=== PATIENT | female | born 1980 | race Caucasian/White ===

== ENCOUNTER → 2018-08-11 | Outpatient (CLI) | payer BC, OTHER | LOC: COL.RAD 11:06 | DX: N13.2 Hydronephrosis with renal and ureteral calculous obstruction (principal) ==

== ENCOUNTER 2018-09-10 11:25 | Inpatient (IN) | payer BC, OTHER ==
[~2018-09-10] VITALS: Ht 167.6 cm; Wt 106.0 kg
[2018-09-10] VITALS (579 sets, daily range): BP systolic 101–121; BP diastolic 58–71; PULSE 103–113; TEMP 101.5–103.1; O2SAT 92–100
[~2018-09-10 11:25] MED LIST: NORCO 325 MG-51 TAB PO; PYRIDIUM 100MG100 MG PO; SENOKOT8.6 MG PO
[2018-09-10] MEDS ORDERED: SENNA-LAX8.6 MG PO (11:44)
[2018-09-10 12:16] LABS: BASO % 0.2 % (0.0-2.0); GRAN # 9.5 (1.4-6.5); GRAN % 85.8 % (42.2-75.2); LYMPH # 0.6 (1.2-3.4); LYMPH % 4.9 % (20.0-51.0); MEAN CELL VOLUME 80 fl (80.0-100.0); MEAN CORPUSCULAR HEMOGLOBIN 26 pg (27.0-31.0); MEAN CORPUSCULAR HGB CONC 32 g/dl (33.0-37.0); MEAN PLATELET VOLUME 12.4 fl (7.4-10.4); MONO # 0.9 (0.1-0.6); MONO % 8.4 % (1.7-9.3); PLATELET COUNT 125 K/mm3 (130-400); RED BLOOD COUNT 4.62 M/mm3 (4.10-5.30); REDCELL DISTRIBUTION WIDTH-CV 13.5 % (11.5-14.5)
[2018-09-10 12:29] LABS: ALBUMIN 3.9 gm/dL (3.5-5.0); BILIRUBIN,TOTAL 1.7 mg/dL (0.0-1.0); CALCIUM 8.7 mg/dL (8.4-10.2); CREATININE, serum 0.84 mg/dL (0.52-1.25); POTASSIUM 3.7 mmol/L (3.4-5.0); TOTAL PROTEIN 6.8 gm/dL (6.4-8.2)
[2018-09-10 12:47] LABS: COLLECTION METHOD CLEAN CATCH
[2018-09-10 13:01] LABS: MUCOUS Present /lpf; PH 5 (5-8); URINE APPEARANCE Hazy; URINE BACTERIA Rare /hpf; URINE BILIRUBIN Negative (NEGATIVE); URINE BLOOD 3+ (NEGATIVE); URINE COLOR Amber; URINE GLUCOSE Negative (NEGATIVE); URINE KETONE Negative (NEGATIVE); URINE LEUKOCYTE ESTERASE 2+ (NEGATIVE); URINE NITRATE Positive (NEGATIVE); URINE PROTEIN(semi-quant) 2+ (NEGATIVE); URINE RBC >50 /hpf; URINE UROBILINOGEN >=4.0 mg/dL (NEGATIVE)
[2018-09-10] MEDS ORDERED: FLOMAX 0.40.4 MG/CAP PO (14:03)
[2018-09-11] VITALS (581 sets, daily range): BP systolic 94–122; BP diastolic 45–80; PULSE 96–124; TEMP 98.4–102.8; O2SAT 89–100
[2018-09-11 11:02] LABS: MEAN CELL VOLUME 81 fl (80.0-100.0); MEAN CORPUSCULAR HGB CONC 33 g/dl (33.0-37.0); MEAN PLATELET VOLUME 12.2 fl (7.4-10.4); PLATELET COUNT 104 K/mm3 (130-400); RED BLOOD COUNT 3.78 M/mm3 (4.10-5.30); REDCELL DISTRIBUTION WIDTH-CV 13.8 % (11.5-14.5)
[2018-09-11 11:05] LABS: HEMATOCRIT 30.5 % (37.0-47.0); HEMOGLOBIN 9.9 g/dl (12.5-16.0); MEAN CORPUSCULAR HEMOGLOBIN 26 pg (27.0-31.0)
[2018-09-11 11:12] LABS: CREATININE, serum 0.93 mg/dL (0.52-1.25); POTASSIUM 3.4 mmol/L (3.4-5.0)
[2018-09-11 11:14] LABS: BAND 18 % (0-10); LYMPHOCYTE 11 % (20.0-51.0); NEUTROPHILS 67 % (42.0-75.2); PLATELET ESTIMATE DECREASED (NORMAL)
[2018-09-11 11:15] LABS: HYPOCHROMIA 1+
[2018-09-11 11:17] LABS: MICROCYTOSIS 1+
[2018-09-12] VITALS (406 sets, daily range): BP systolic 108–128; BP diastolic 56–96; PULSE 77–99; TEMP 98–100.2; O2SAT 95–100
[2018-09-13 04:57] VITALS: BP 119/72; PULSE 86; TEMP 99.2
[2018-09-13 06:20] LABS: BASO % 0.3 % (0.0-2.0); EOS % 0.6 % (0-4.0); GRAN # 5.5 (1.4-6.5); GRAN % 80.4 % (42.2-75.2); LYMPH # 0.7 (1.2-3.4); LYMPH % 10.4 % (20.0-51.0); MEAN CELL VOLUME 79 fl (80.0-100.0); MEAN CORPUSCULAR HGB CONC 33 g/dl (33.0-37.0); MEAN PLATELET VOLUME 12.2 fl (7.4-10.4); MONO # 0.5 (0.1-0.6); MONO % 7.9 % (1.7-9.3); PLATELET COUNT 107 K/mm3 (130-400); RED BLOOD COUNT 3.61 M/mm3 (4.10-5.30); REDCELL DISTRIBUTION WIDTH-CV 13.9 % (11.5-14.5)
[2018-09-13 06:22] LABS: HEMATOCRIT 28.5 % (37.0-47.0); HEMOGLOBIN 9.3 g/dl (12.5-16.0); MEAN CORPUSCULAR HEMOGLOBIN 26 pg (27.0-31.0)
[2018-09-13 06:29] LABS: ALBUMIN 2.8 gm/dL (3.5-5.0); CALCIUM 7.9 mg/dL (8.4-10.2); CREATININE, serum 0.79 mg/dL (0.52-1.25); POTASSIUM 3.3 mmol/L (3.4-5.0); TOTAL PROTEIN 5.8 gm/dL (6.4-8.2)
[2018-09-13] MEDS ORDERED: PRENATAL MVI (07:49)
[2018-09-13 09:00] VITALS: BP 122/72; PULSE 82; TEMP 98
[2018-09-13 12:29] VITALS: BP 97/67; PULSE 87; TEMP 99.6
[2018-09-13 15:00] VITALS: BP 121/68; PULSE 86; TEMP 99.3
[2018-09-13 21:06] VITALS: BP 123/80; PULSE 79; TEMP 98
[2018-09-14 00:26] VITALS: BP 121/74; PULSE 94; TEMP 98.8
[2018-09-14 04:12] VITALS: BP 118/65; PULSE 84; TEMP 99.2
[2018-09-14 06:05] LABS: BASO % 0.3 % (0.0-2.0); EOS % 0.7 % (0-4.0); GRAN # 4.2 (1.4-6.5); GRAN % 70.2 % (42.2-75.2); LYMPH % 17.2 % (20.0-51.0); MEAN CELL VOLUME 79 fl (80.0-100.0); MEAN CORPUSCULAR HGB CONC 32 g/dl (33.0-37.0); MEAN PLATELET VOLUME 11.9 fl (7.4-10.4); MONO # 0.7 (0.1-0.6); MONO % 11.1 % (1.7-9.3); PLATELET COUNT 157 K/mm3 (130-400); REDCELL DISTRIBUTION WIDTH-CV 13.9 % (11.5-14.5)
[2018-09-14 06:09] LABS: HEMATOCRIT 28.4 % (37.0-47.0); HEMOGLOBIN 9.2 g/dl (12.5-16.0); MEAN CORPUSCULAR HEMOGLOBIN 26 pg (27.0-31.0)
[2018-09-14 06:24] LABS: CALCIUM 8.5 mg/dL (8.4-10.2); CREATININE, serum 0.87 mg/dL (0.52-1.25); POTASSIUM 3.8 mmol/L (3.4-5.0)
[2018-09-14 08:22] VITALS: BP 125/88; PULSE 77; TEMP 99
[2018-09-14 11:54] VITALS: BP 132/84; PULSE 76; TEMP 99.4
== END 2018-09-14 15:00 | disposition home or self-care (01) | DRG 872 ==
LOC: COL.ER 11:25 → ICU 12:35 → SURG 12:35
PROVIDERS: Family Medicine; Physician Assistant; Urology
DX: A41.9 Sepsis, unspecified organism (principal); N39.0 Urinary tract infection, site not specified; N10 Acute pyelonephritis; Z23 Encounter for immunization; Z87.891 Personal history of nicotine dependence; D64.9 Anemia, unspecified; D69.6 Thrombocytopenia, unspecified; B95.2 Enterococcus as the cause of diseases classified elsewhere; E87.6 Hypokalemia
CPT/HCPCS: 99222; 99231-AI; 99232-AI; J0744; J1650; J1885; J2270; J2405; J2543; J3370; J7030; J7040; Q9967

== ENCOUNTER → 2022-01-30 | Outpatient (CLI) | payer BC, OTHER ==
[~2022-01-30] MED LIST changes: +FLOMAX 0.40.4 MG/CAP PO; +PRENATAL MVI; +SENNA-LAX8.6 MG PO
== END ==
LOC: MC.RAD 12:58
DX: Z12.31 Encounter for screening mammogram for malignant neoplasm of breast (principal)